=== PATIENT | female | born 1965 | race American Indian/Alaskan Native ===

== ENCOUNTER 2017-03-17 02:50 | Emergency (ER) | payer OTHER ==
[2017-03-17 05:54] LABS: Bilirubin,Urine NEG (Negative); Blood,Urine NEG (Negative); Ketones,Urine NEG (Negative); Leukocyte Esterase,Urine NEG (Negative); Nitrite,Urine NEG (Negative); Protein,Urine <15 mg/dL mg/dL (Negative); RBC,Urine < 1.0 /HPF (0.0-6.0); Urobilinogen,Urine < 2.0 mg/dL (<2.0); WBC,Urine < 1.0 /HPF (0.0-6.0)
[2017-03-17 06:37] LABS: Basophils % (Auto) 0.9 % (0.0-1.8); Eosinophils % (Auto) 3.9 % (0.0-4.3); Hematocrit 35.4 % (30.3-42.9); Hemoglobin 11.7 gm/dl (10.1-14.3); Mean Corpuscular HGB Conc 33 % (30-34); Mean Corpuscular Volume 78 fl (79-97); Platelet Count 332 K/mm3 (140-440); Red Blood Count 4.52 M/mm3 (3.65-5.03); Red Cell Distribution Width 15.1 % (13.2-15.2)
[2017-03-17 06:53] LABS: Alanine Aminotransferase 15 units/L (7-56); Albumin/Globulin Ratio 1.4 %; Alkaline Phosphatase 80 units/L (35-129); Anion Gap 16 mmol/L; Blood Urea Nitrogen 14 mg/dL (7-17); Calcium 9.5 mg/dL (8.4-10.2); Carbon Dioxide 24 mmol/L (22-30); Chloride 103.2 mmol/L (98-107); Glucose 85 mg/dL (65-100); Potassium 4.4 mmol/L (3.6-5.0); Sodium 139 mmol/L (137-145); Total Protein 6.8 g/dL (6.3-8.2)
[2017-03-17 06:56] LABS: Mean Corpuscular Hemoglobin 26 pg (28-32)
--- NOTE | 2017-03-17 07:14 | XRay Report ---
ROUTINE CHEST, TWO VIEWS: HISTORY: Chest pain, fatigue. The trachea, heart, mediastinal contour, lung sutton and bony thorax are unremarkable. IMPRESSION: Unremarkable chest x-ray.
--- NOTE | 2017-03-17 07:22 | Emergency Department Report ---
ED Fall HPI - General Chief Complaint: Fall Stated Complaint: ABD PAIN; N/V Time Seen by Provider: 03/17/17 07:10 Source: patient Mode of arrival: Ambulatory Limitations: No Limitations - History of Present Illness Initial Comments: Patient reported that she fell about a week ago and a drain hole and her entire left side to her torso hurts. She said she was seen at a clinic and she was prescribed nausea and antibiotic for UTI and a muscle relaxer but she is still nauseous. She said the whole left side still hurts and meds are not working. She says she works and she is to do heavy lifting and if she does not she can go to work. Pain is 10 out of 10 to left side abdominal pain, upper. She is also complaining of left neck and jaw pain. Denies any chest pain or shortness of breath. She has daily bowel movements. Denies any urinary burning frequency or urgency. She denies any vomiting but says that she is nauseous. She has a history of appendectomy and . Medical history of appendicitis but no other history. Denies all call use. Denies any fever or chills. Denies any injury to her neck or pain in her back or C-spine. Denies any headache. Denies any nasal congestion. MD Complaint: fall, other (pain to the left side, nausea.) Onset/Timin -: days(s) Fall From: standing When Fall Occurred: # days [employer] (7 days ago) Fall Witnessed: yes, by bystander Place Fall Occurred: other (outdoors) Loss of Consciousness: none Prolonged Down Time?: no Symptoms Prior to Fall: none Location: abdomen ( upper,left) Severity: severe Severity scale (0 -10): 10 Quality: aching Context: tripped/slipped Associated Symptoms: neck pain, abdominal pain, other (jaw pain). denies: headache, numbness, weakness, chest paint, shortness of breath, hematuria, unable to walk, lightheaded, vertigo, confusion - Related Data Previous Rx's Medication Instructions Recorded Last Taken Type Acetaminophen/Codeine [Tylenol 1 tab PO Q6H PRN #12 tab 03/17/17 Unknown Rx /Codeine # 3 tab] Promethazine [Phenergan TAB] 25 mg PO Q8HR PRN #12 tab 03/17/17 Unknown Rx Allergies Allergy/AdvReac Type Severity Reaction Status Date / Time No Known Allergies Allergy Verified 03/17/17 03:09 ED Review of Systems ROS: Stated complaint: ABD PAIN; N/V Other details as noted in HPI Comment: All other systems reviewed and negative Constitutional: no symptoms reported ENT: denies: ear pain, throat pain, congestion Respiratory: no symptoms reported. denies: shortness of breath Cardiovascular: denies: chest pain, palpitations, dyspnea on exertion, orthopnea , edema, syncope, paroxysmal nocturnal dyspnea Gastrointestinal: abdominal pain, nausea. denies: vomiting, diarrhea, constipation, hematemesis, melena, hematochezia Genitourinary: denies: urgency, dysuria, frequency, hematuria, discharge, abnormal menses, dyspareunia Musculoskeletal: denies: back pain, joint swelling, arthralgia, myalgia Skin: denies: rash Neurological: denies: headache, weakness, numbness, paresthesias, confusion, abnormal gait, vertigo Psychiatric: denies: anxiety ED Past Medical Hx - Past Medical History Previous Medical History?: No - Surgical History Past Surgical History?: Yes Hx Appendectomy: Yes Additional Surgical History: C SECTION - Family History Family history: no significant - Social History Smoking Status: Never Smoker Substance Use Type: None Other Social History: single - Medications Home Medications: Home Medications Medication Instructions Recorded Confirmed Last Taken Type Acetaminophen/Codeine [Tylenol 1 tab PO Q6H PRN #12 tab 03/17/17 Unknown Rx /Codeine # 3 tab] Promethazine [Phenergan TAB] 25 mg PO Q8HR PRN #12 tab 03/17/17 Unknown Rx ED Physical Exam - General Limitations: No Limitations General appearance: alert, in no apparent distress - Head Head exam: Present: atraumatic, normocephalic, normal inspection - Eye Eye exam: Present: normal appearance. Absent: scleral icterus, conjunctival injection Pupils: Present: normal accommodation - ENT ENT exam: Present: normal exam, normal orophraynx, mucous membranes moist, TM's normal bilaterally, normal external ear exam - Neck Neck exam: Present: normal inspection, full ROM. Absent: tenderness, meningismus, lymphadenopathy, thyromegaly - Expanded Neck Exam Expanded Neck exam: Present: other (no C-spine tenderness). Absent: tenderness, midline deformity, anterior neck swelling, tracheal deviation - Respiratory Respiratory exam: Present: normal lung sounds bilaterally. Absent: respiratory distress, chest wall tenderness, accessory muscle use - Cardiovascular Cardiovascular Exam: Present: regular rate, normal rhythm, normal heart sounds. Absent: systolic murmur, diastolic murmur - GI/Abdominal GI/Abdominal exam: Present: soft, normal bowel sounds. Absent: distended, tenderness, guarding, rebound, rigid, organomegaly, mass, bruit, pulsatile mass , hernia - Expanded GI/Abdominal Exam Expanded GI/Abdominal exam: Absent: Cheng's sign, ascites - Extremities Exam Extremities exam: Present: normal inspection, full ROM, normal capillary refill. Absent: tenderness, pedal edema, joint swelling, calf tenderness - Back Exam Back exam: Present: normal inspection, full ROM. Absent: tenderness, CVA tenderness (R), CVA tenderness (L), muscle spasm, paraspinal tenderness, vertebral tenderness, rash noted - Neurological Exam Neurological exam: Present: alert, oriented X3, normal gait, reflexes normal. Absent: motor sensory deficit - Psychiatric Psychiatric exam: Present: normal affect, normal mood - Skin Skin exam: Present: warm, dry, intact, normal color. Absent: rash ED Course Vital Signs 03/17/17 03:10 Temperature 98.1 F Pulse Rate 73 Respiratory 20 Rate Blood Pressure 118/64 O2 Sat by Pulse 98 Oximetry - Reevaluation(s) Reevaluation #1: 03/17/17 08:37 Patient given Zofran 8 mg im, Toradol 60 mg IM for nausea and abdominal pain. I discussed with her having a CT scan to rule out any kind of abdominal abnormality but patient did not want to see relates her pain to lifting heavy items at work and says she just needs a couple day off. I also discussed with her that her lab work were stable and there is no urinary tract infection noted an area UA. [facility] rescue physician IV fluid and she did not want IV fluids because she says she is able to drink liquids. ED Medical Decision Making - Lab Data Result diagrams: 03/17/17 06:03 03/17/17 06:03 Lab Results 03/17/17 03/17/17 03/17/17 Range/Units 05:30 06:03 06:03 WBC 6.0 (4.5-11.0) K/mm3 RBC 4.52 (3.65-5.03) M/mm3 Hgb 11.7 (10.1-14.3) gm/dl Hct 35.4 (30.3-42.9) % MCV 78 L (79-97) fl MCH 26 L (28-32) pg MCHC 33 (30-34) % RDW 15.1 (13.2-15.2) % Plt Count 332 (140-440) K/mm3 Lymph % (Auto) 36.5 H (13.4-35.0) % Douglas % (Auto) 6.5 (0.0-7.3) % Eos % (Auto) 3.9 (0.0-4.3) % Baso % (Auto) 0.9 (0.0-1.8) % Lymph # 2.2 (1.2-5.4) K/mm3 Douglas # 0.4 (0.0-0.8) K/mm3 Eos # 0.2 (0.0-0.4) K/mm3 Baso # 0.1 (0.0-0.1) K/mm3 Seg Neutrophils % 52.2 (40.0-70.0) % Seg Neutrophils # 3.1 (1.8-7.7) K/mm3 Sodium 139 (137-145) mmol/L Potassium 4.4 (3.6-5.0) mmol/L Chloride 103.2 (98-107) mmol/L Carbon Dioxide 24 (22-30) mmol/L Anion Gap 16 mmol/L BUN 14 (7-17) mg/dL Creatinine 0.8 (0.7-1.2) mg/dL Estimated GFR > 60 ml/min BUN/Creatinine Ratio 17.50 % Glucose 85 (65-100) mg/dL Calcium 9.5 (8.4-10.2) mg/dL Magnesium 1.90 (1.7-2.3) mg/dL Total Bilirubin 0.20 (0.1-1.2) mg/dL AST 16 (5-40) units/L ALT 15 (7-56) units/L Alkaline Phosphatase 80 (35-129) units/L Troponin T < 0.010 (0.00-0.029) ng/mL Total Protein 6.8 (6.3-8.2) g/dL Albumin 4.0 (3.9-5) g/dL Albumin/Globulin Ratio 1.4 % Urine Color Straw (Yellow) Urine Turbidity Clear (Clear) Urine pH 6.0 (5.0-7.0) Ur Specific [place] 1.012 (1.003-1.030) Urine Protein <15 mg/dl (Negative) mg/dL Urine Glucose (UA) Neg (Negative) mg/dL Urine Ketones Neg (Negative) mg/dL Urine Blood Neg (Negative) Urine Nitrite Neg (Negative) Ur Reducing Substances Not Reportable Urine Bilirubin Neg (Negative) Urine Ictotest Not Reportable Urine Urobilinogen < 2.0 (<2.0) mg/dL Ur Leukocyte Esterase Neg (Negative) Urine WBC (Auto) < 1.0 (0.0-6.0) /HPF Urine RBC (Auto) < 1.0 (0.0-6.0) /HPF U Epithel Cells (Auto) < 1.0 (0-13.0) /HPF Urine HCG, Qual Negative (Negative) - EKG Data -: EKG Interpreted by Me (by attending physician) EKG shows normal: sinus rhythm (at 67 beats per minutes) Rate: normal - EKG Data Interpretation: no acute changes - Radiology Data Radiology results: report reviewed X-ray reveal no acute cardiopulmonary findings - Medical Decision Making ED course: Patient here 7 days pulse fall and would complain and off left-sided abdominal pain. She was seen in urgent care and treated for nausea, pain with muscle relaxer and antibiotic for urinary tract infection. Patient states that she also had a test that was negative. Repeat labs due to complained of left neck and jaw pain with EKG normal sinus rhythm at 67 bpm, cardiac troponin normal, right urinalysis is normal, CBC and chemistries stable. This was discussed with patient. Abdominal exam is normal and patient says she is here because she is still having the nausea and the pain. She was given Zofran 8 mg IM and Toradol 60 mg IM in emergency room. I ordered CT scan with IV contrast and explained the reason for the CT scan and patient later refused to have CT scan because she states that she thinks it's from her daughter having lifted a work and she needs a couple days to rest. She also refused IV fluid and that she is able to tolerate liquids. I discussed the patient that the CT scan is to investigate any kind of abnormalities in her abdomen and she said that she does not want that right now. I discussed the patient that if she continues to have abdominal pain and nausea that she will need to follow up with operations examiner. I also discussed with her diagnosis and treatment plan and she is in agreement. I discussed the patient she should avoid spicy food and carbonated beverage. I discussed with her that she should eat a diet which included banana, rice, applesauce and toast over the next 72 hours and to call operations examiner for follow-up appointment` Critical care attestation.: If time is entered above; I have spent that time in minutes in the direct care of this critically ill patient, excluding procedure time. ED Disposition Clinical Impression: Nausea alone, Neck pain on left side Abdominal pain Qualifiers: Abdominal location: left upper quadrant Qualified Code(s): R10.12 - Left upper quadrant pain Disposition: - TO HOME OR SELFCARE Is pt being admited?: No Does the pt Need Aspirin: No Condition: Stable Instructions: Abdominal Pain (ED), Acute Nausea and Vomiting (ED), Muscle Strain (ED) Additional Instructions: follow-up with operations examiner as discussed. Increasing fluid intake and avoid spicy and carbonated beverage. Rest for the next 3 days Please eat diet consisting of banana, rice, applesauce and toast Continue to take Flexeril for neck muscle strain, take Tylenol 3 for abdominal pain but please do not drive or operate heavy machinery while taking this medication and use intake Phenergan for nausea. If you develop fever, increasing abdominal pain and nausea and/or vomiting please return to the emergency room [facility]. Prescriptions: Acetaminophen/Codeine [Tylenol /Codeine # 3 tab] 1 tab PO Q6H PRN #12 tab PRN Reason: Pain, Moderate (4-6) Promethazine [Phenergan TAB] 25 mg PO Q8HR PRN #12 tab PRN Reason: Nausea Referrals: PRIMARY CAREMD [Primary Care Provider] - 03/20/17 [facility] [Provider Group] - 03/20/17 Forms: Work/School Release Form(ED)
[2017-03-17] MEDS ORDERED: NACL 0.9% 1000 ML 1,000 ML IV ONE (07:49)
[2017-03-17] MEDS ORDERED: ZOFRAN IM ONE ×2 (07:49→08:13)
[2017-03-17] MEDS ORDERED: TORADOL IV ONE (07:49)
[2017-03-17] MEDS ORDERED: NACL ONE (08:02)
[2017-03-17] MEDS ORDERED: TORADOL IM ONE (08:13)
[2017-03-17 09:08] VITALS: BP 129/88
== END 2017-03-17 09:14 | disposition home or self-care (01) ==
LOC: ED 02:50
DX: M54.2 Cervicalgia (principal); R10.12 Left upper quadrant pain; R11.0 Nausea; W17.89XA Other fall from one level to another, initial encounter; Y93.89 Activity, other specified; Y92.89 Other specified places as the place of occurrence of the external cause; Y99.2 Volunteer activity
CPT/HCPCS: 36415; 71020; 80053; 81001; 81025; 83735; 84484; 85025; 93005; 93010; 96372; 99284; J1885; J2405